=== PATIENT | female | born 1970 | race Caucasian/White ===

== ENCOUNTER 2019-03-16 04:44 | Day surgery (SDC) | payer BC ==
[2019-03-16] MEDS ORDERED: TRANEXAMIC ACID 1,000 MG/10 ML ML IV ONE (04:45)
[2019-03-16] MEDS ORDERED: GLYCOPYRROLATE 0.2 MG/ML ML IV ONE (04:45)
[2019-03-16] MEDS ORDERED: LIDOCAINE 2% MDV (20MG/ML) 20ML VIAL IV ONE (04:45)
[2019-03-16] MEDS ORDERED: PROPOFOL 10 MG/ML VIAL IV ONE (04:45)
[2019-03-16] MEDS ORDERED: MIDAZOLAM HCL 2MG/2ML VIAL IV ONE (04:45)
[2019-03-16] MEDS ORDERED: KETOROLAC 30 MG/ML VIAL IVP ONE (04:45)
[2019-03-16] MEDS ORDERED: VANCOMYCIN HCL 1 GM VIAL IVPB ONE (04:45)
[2019-03-16] MEDS ORDERED: PHENYLEPHRINE HCL 10 MG/ML VIAL IVP ONE (04:45)
[2019-03-16] MEDS ORDERED: RINGERS SOLUTION,LACTATED 500 ML IV ONE (05:35)
[2019-03-16 05:36] LABS: ABO GROUP A; ANTIBODY SCREEN NEGATIVE (NEGATIVE); RH TYPE POSITIVE
[2019-03-16] MEDS: VANCOMYCIN HCL 1,000 MG in 0.9 % SODIUM CHLORIDE 250ML 250 ML IVPB ONE ×2 (05:42→10:44)
[2019-03-16] MEDS ORDERED: METOCLOPRAMIDE 10 MG TABLET PO ONE (06:00)
[2019-03-16] MEDS ORDERED: CELECOXIB 100 MG CAPSULE PO ONE (06:00)
[2019-03-16] MEDS ORDERED: MECLIZINE 25 MG TABLET PO ONE (06:00)
[2019-03-16] MEDS ORDERED: ACETAMINOPHEN 1,000 MG/100 ML BTL IV ONE (06:00)
[2019-03-16] MEDS ORDERED: FAMOTIDINE 20MG TABLET PO ONE (06:00)
[2019-03-16] MEDS ORDERED: CEFAZOLIN 2 Gram 2 GM/50 ML BAG IVPB ONE (06:00)
[2019-03-16] MEDS ORDERED: METOCLOPRAMIDE 10 MG TABLET PO PRN (07:34)
[2019-03-16] MEDS ORDERED: KETOROLAC 30 MG/ML VIAL IVP PRN ×2 (07:34)
[2019-03-16] MEDS ORDERED: ACETAMINOPHEN W/ CODEINE 300MG/30MG TABLET PO PRN ×2 (07:34)
[2019-03-16] MEDS ORDERED: ACETAMINOPHEN 325 MG TAB PO PRN (07:34)
[2019-03-16] MEDS ORDERED: HYDROCODONE/APAP 5/325MG TABLET PO PRN ×2 (07:34)
[2019-03-16] MEDS ORDERED: MAGNESIUM HYDROXIDE 30 ML UDC PO PRN (07:34)
[2019-03-16] MEDS ORDERED: NALOXONE 0.4 MG/1 ML VIAL IVP PRN (07:34)
[2019-03-16] MEDS ORDERED: ACETAMINOPHEN W/ CODEINE 300MG/60MG TABLET PO PRN ×2 (07:34)
[2019-03-16] MEDS ORDERED: TRAMADOL HCL 50 MG TABLET PO PRN ×2 (07:34)
[2019-03-16] MEDS ORDERED: BISACODYL 10 MG SUPP RC PRN (07:34)
[2019-03-16] MEDS ORDERED: AL HYDROX/MAG HYDROX 30ML UD PO PRN (07:34)
[2019-03-16] MEDS ORDERED: HYDROCODONE/APAP 7.5/325MG TABLET PO PRN ×2 (07:34)
[2019-03-16] MEDS ORDERED: DEXTROSE 5 % AND 0.9 % NACL 1,000 ML IV PRN (07:34)
[2019-03-16] MEDS ORDERED: DIPHENHYDRAMINE HCL 25 MG CAPSULE PO PRN (07:34)
[2019-03-16] MEDS ORDERED: PROMETHAZINE HCL 25 MG TABLET PO PRN (07:34)
[2019-03-16] MEDS ORDERED: ONDANSETRON 4 MG ODT TABLET SL PRN (07:34)
[2019-03-16] MEDS ORDERED: BUPIVACAINE 0.5% W/EPI MPF 30 ML VIAL SQ ONE (08:18)
[2019-03-16] MEDS ORDERED: BUPIVACAINE LIPOSOME 266MG/20ML VIAL SQ ONE (08:18)
[2019-03-16] MEDS ORDERED: RINGERS SOLUTION,LACTATED 300 ML IV ONE (09:26)
[2019-03-16] MEDS ORDERED: DOCUSATE SODIUM 100 MG CAPSULE PO SCH (10:00)
[2019-03-16] MEDS ORDERED: VANCOMYCIN HCL 500 MG in 0.9 % SODIUM CHLORIDE 100ML 100 ML IVPB SCH (10:30)
--- NOTE | 2019-03-16 13:22 | Rehab Evaluation ---
Patient Information - Patient Information Diagnosis: L Hip OA Ordered Treatment: PT Evaluate and Treat Status: Initial Evaluation Surgery: Yes (LT) Date of Surgery: 03/16/19 Past Medical/Surgical Hx: PAST MEDICAL/SURGICAL HISTORY Past Surgical History OPEN CHOLECYSTECTOMY PMH - Respiratory Hx Respiratory Disorders No PMH - Cardiovascular Hx Cardiovascular Disorders No Exercise Tolerance Good Hx of Migraines Yes: 1.5 yr ago last one PMH - Neuro Hx Neurological Disorders Yes PMH - GI Hx Gastrointestinal Disorders No PMH - Hx Genitourinary Disorders No Patient No PMH - Endocrine Hx Endocrine Disorders No PMH - Musculoskeletal Hx Musculoskeletal Disorders Yes Hx Arthritis Yes: both hips PMH - Psych Hx Psychiatric Problems No PMH - Hematology/Oncology Hx Hematology/Oncology No Disorders Premorbid Status: Detail (Prior to surgery the patient was independent with all mobility.) Social History: Detail (The patient lives with jodi in a one story house with 3 stairs at the enterance and no handrails. The bathroom is equipped with: a tub /shower combination with a hand held shower and a standard toilet. The patient does have a shower seat and 2 riser seats. No grab bars are present in the bathroom. The patient has a front wheeled walker and a standard cane with a wide base of support.) Precautions: [place], Fall, Other (WBAT on the L LE, THR precautions) - Time With Patient Treatment Procedures: Detail (Initial Evaluation, gait training) Subjective Information - Subjective Information Per Patient (The patient has no complaints of pain. The patient did complain of lightheadedness several times throughout PT session and needed to sit.) Objective Data - Mental Status Patient Orientation: Oriented x3 - Visual Perception Appears within normal limits for therapeutic activities - ROM Not within normal limits (The patient's L hip is within total hip precautions. All other AROM is WNL.) - Strength/Tone Not within normal limits (The patient's L LE was not tested secondary to s/p surgery, however strength was functional ie: patient was able to lift LE out of bed. R LE strength was functional.) - Bed Mobility Independent (The patient was independent with supine to and from sit with use of R LE to lift L.) - Transfers Independent (The patient was independent with sit to and from stand transfer and toilet transfer. Supervision for safety is recommended intitially when discharged due to episode of lightheadedness during initial PT session.) - Balance Balance Sitting: Good Balance Standing: Good - Sensation Intact - Gait Detail (The patient ambulated 20 feet x 1, 13 feet x 1,100 feet x 1 with front wheeled walker with supervison for safety. Initially ambulation distance was limited due to lightheadedness. PT returned later, and patient was able to ambulate 100 feet without lightheadedness.The patient was taken via wheelchair to the steps. The patient stated she felt well enough to ambulate on stairs. The patient ambulated down stairs with neice assisting and folded walker using proper technique. Wheelchair was brought down stairs due to lightheadness. When patient no longer had symptoms, she ambulated up stairs using railing and folded walker. Patient required verbal cues to place whole foot on step.) Therapy Assessment - Therapy Assessment Detail (The patient was independent with bed mobility,transfers and ambulation due to symptoms of lightheadedness and fainting episode during OT session supervision with all mobility is recommended upon discharge. The patient was independent with THR HEP. The patient has met all inpatient goals and is discharged from inpatient PT. The patient is to receive Home Care services who will be present when patient arrives home.) Patient Education - Patient Education Teaching Topic: Exercise/Activity (The patient completed the following THR HEP including: gluteal sets, hamstring sets, quad sets, heel slides, ankle pumps and supine hip abduction.) Response: Return Demonstration Teaching Method: Discussion, Demonstration, Handout Teaching Recipient: Patient Barriers To Learning: None Problem List - Problem List Physical Therapy Problem List: Detail (1) Decreased L LE strength as to be expected s/p surgery 2)Initial lightheadedness with standing and ambulation) Goals - Goals Physical Therapy Goals: The patient has met all inpatient goals and is to receive inpatient PT. Prognosis - Prognosis Good Plan - Plan Physical Therapy Plan: The patient is discharged from inpatient PT and is to receive Home PT.
--- NOTE | 2019-03-16 15:16 | Rehab Evaluation ---
Patient Information - Patient Information Diagnosis: L Hip OA Ordered Treatment: OT Evaluate and Treat Status: Initial Evaluation Surgery: Yes (LTHR) Date of Surgery: 03/16/19 Past Medical/Surgical Hx: PAST MEDICAL/SURGICAL HISTORY Past Surgical History OPEN CHOLECYSTECTOMY PMH - Respiratory Hx Respiratory Disorders No PMH - Cardiovascular Hx Cardiovascular Disorders No Exercise Tolerance Good Hx of Migraines Yes: 1.5 yr ago last one PMH - Neuro Hx Neurological Disorders Yes PMH - GI Hx Gastrointestinal Disorders No PMH - Hx Genitourinary Disorders No Patient No PMH - Endocrine Hx Endocrine Disorders No PMH - Musculoskeletal Hx Musculoskeletal Disorders Yes Hx Arthritis Yes: both hips PMH - Psych Hx Psychiatric Problems No PMH - Hematology/Oncology Hx Hematology/Oncology No Disorders Premorbid Status: Detail (Prior to surgery the patient was independent with all mobility, meal prep, laundry and home mgmt.) Social History: Detail (The patient lives with niece in a one story house with 3 steps at the entrance and no handrails. The bathroom is equipped with: a tub/ shower combination with a hand held shower and a standard toilet. The patient does have a shower seat and 2 riser seats. No grab bars are present in the bathroom. The patient has a front wheeled walker and a standard cane with a wide base of support as well as a severity of illness coordinator, long shoe horn and sock aid. Her niece will be assisting with ADLs/IADLs as needed after discharge.) Precautions: [place], Fall, Other (WBAT on the L LE, THR precautions) - Time With Patient Total Time Spent With Patient (Min): 50 Treatment Procedures: Detail (OT eval low complexity) Subjective Information - Subjective Information Per Patient Objective Data - Pain Pain Present: No (No pain at rest, pt reports increased pain with movement) - Mental Status Patient Orientation: Oriented x3 - Visual Perception Appears within normal limits for therapeutic activities - ROM Within normal limits (Yassine UE AROM WNL) - Strength/Tone Within normal limits (Yassine UE strength WNL) - Coordination Appears within normal limits for therapeutic activities - Bed Mobility Independent (Ind with supine to sit) - Transfers Independent (Ind with sit to stand) - Balance Balance Sitting: Good Balance Standing: Fair - Sensation Intact - ADL's/IADL's Detail (Pt educated and able to demonstrate learning of modified LE dressing techniques using adaptive equipment while maintaining total hip precautions. Pt was able to doff slipper socks and don underwear, pants, socks and tennis shoes with adaptive equipment while maintaining precautions. While pt was standing for nursing to add bandage to hip she reported not feeling good and became unresponsive. She was lowered to the chair and regained responsiveness. She was educated on deep breathing and after applying ice to her forehead and neck she felt better. Reviewed kitchen safety, pt verbalized understanding.) Therapy Assessment - Therapy Assessment Detail (Pt is Ind with modified LE dressing techniques using adaptive equipment while maintaining total hip precautions.) Problem List - Problem List Occupational Therapy Problem List: Detail (No current IP OT problems identified. ) Goals - Goals Occupational Therapy Goals: No current IP OT goals identified. Prognosis - Prognosis Good Plan - Plan Occupational Therapy Plan: No further IP OT recommended. Thank you for this referral.
--- NOTE | 2019-03-17 11:30 | Operative Note ---
DATE OF SERVICE: 03/16/2019. DATE OF SURGERY: 03/16/2019. PREOPERATIVE DIAGNOSIS: End-stage left hip arthrosis. POSTOPERATIVE DIAGNOSIS: End-stage left hip arthrosis. OPERATION: Left total hip arthroplasty. SURGEON: Ted Sheridan MD. ANESTHESIA: Spinal. COMPLICATIONS: None. BLOOD LOSS: 200 mL. OPERATIVE FINDINGS: Severe hypertrophic arthritic [id number] hip. COMPONENTS PLACED: Two gram vancomycin cement, [employer] cemented Synergy stem high offset size 14 with a 32 + 4 mm Oxinium femoral head component, and a 50 degree, 3 hole Reflection acetabular screw component with 2 screw caps, centrally threaded screw cap, and 1 acetabular screw 45 mm and a 35 degree high- crosslinked polyethylene liner. INDICATION: Severe [id number] hypertrophic hip arthrosis. This is a 45-year- old female with severe end-stage bilateral hip arthrosis, almost autofused both hips. She has failed nonoperative treatment. She has very limited range of motion, if any, in either hip at all. She walks with an externally rotated, waddling-type gait, and she was scheduled for hip replacement. I explained all risks and benefits in detail for her diagnosis and procedure, including, but not limited to, infection, nerve injury, vessel injury, persistent pain, stiffness, numbness, tingling in her hip, periprosthetic fracture, need for resection arthroplasty if components become infected or loosen, nerve injury, blood clot, need for anticoagulation to prevent blood clots and risks of these medications, and all of her questions were answered. Details of the course were outlined, and she agreed to proceed. PROCEDURE: The patient was brought to the OR and placed in the left lateral decubitus position. The left hip and lower extremity prepped and draped in the usual sterile fashion. Prepped using ChloraPrep and draped. An intraoperative time out was performed. Next, a posterior approach was marked to the hip with our marking template. Infiltrated 0.5% Marcaine with epi/tranexamic acid/ Exparel mixture. Skin and subcutaneous tissues dissected down. Gluteal fascia split longitudinally. Self retainer was brought in. Then identified the sciatic nerve with care to protect it all times. Released the capsule and short external rotators, and exposed the hip joint. Then the hip joint severely arthritic. Acetabular rim was circumferentially arthritic and close in around the neck. We resected the femoral head and dislocated the femoral head after releasing extensively and resected it. Then we removed osteophytes off some of the rim initially posteriorly for exposure. Then prepared the femoral stem using the box osteotome, and then started reaming in 1 mm increments up to a size 14. Stopped there, broached 12 up to 15 stacey average and the 13 and 14 had good fit, and we stopped there. Attention turned to the acetabulum. Released the capsule anteriorly. Placed retractors anteriorly and inferiorly. Released some of the capsule around the periphery. Next, I reamed in 1 mm increments working up to a size 45 degrees inclination, 20 degree anteversion until we reamed up to a size 49. We stopped there. Planned on using a 50. We medialized as much as possible with reaming, and we capped in the 50 and had a good fit and good reduction. We irrigated copiously, changed gloves, and then impacted down the real 3-hole Reflection acetabular screw shell using the helicopter guide and the same orientation, in 20 degrees anteversion and 45 degrees inclination until we had it flush with the medial wall. We verified our orientation. We then drilled the posterior central superior quadrant screw hole, inserted a 45 mm screw there with good purchase. Next, we removed the rounded rim, large rim osteophytes off the acetabulum to get it back down to the edge of the implanted acetabular shell as best as possible to clean up the hip. Next did a trial range of motion with the trial liner. Best combination range of motion and stability was with the high-offset 32 + 4 mm femoral head component. This allowed for good abductive tension without over-stopping, almost symmetric leg lengths, slightly short on the left. She has severe hip arthrosis on the right, and we plan on hip replacement there, as well, at a later date, and there was stability with extension and external rotation, stability with flexion and internal rotation. Next, we dislocated the hip, changed gloves, mixed cement, irrigated the femoral canal copiously, inserted the cement restrictor, injected the cement. Excess removed with the suction catheter and packed the cement medially, and then inserted the real femoral stem, again in 50 degrees of anteversion until the collar was flush with the medial calcar and held there until the cement hardened. Cleaned and dried the trunnion. Impacted down the real femoral head. Re- reduced the hip and found the range of motion still the same. Irrigated copiously. Then we injected deep to superficial with our 0.5% Marcaine with epi , tranexamic acid, and Exparel mixtures. Closed the gluteal fascia securely using running #2 Stratafix suture, closed the skin securely with 2-0 Vicryl. Sterile dressings applied, provisional, and will be changed to a MARIO dressing prior to discharge. She will be discharged as an outpatient today. Has home therapy with a nurse with [facility] that will be waiting for her at the house , and she will follow up in 2 weeks. DOMINICK
--- NOTE | 2019-03-19 08:57 | RADIOLOGY REPORT ---
EXAM: LEFT HIP, ONE VIEW HISTORY: TOTAL LEFT HIP ARTHROPLASTY. TECHNIQUE: A single AP portable supine view of the left hip is obtained. Comparison: None. FINDINGS: There are changes of recent total left hip arthroplasty with the metallic prosthetic components appearing well seated. No complicating fracture or dislocation is seen. Soft tissue swelling and soft tissue emphysema are scattered throughout the surgical site mildly limiting evaluation. IMPRESSION: STATUS POST RECENT TOTAL LEFT HIP ARTHROPLASTY. NO DEFINITE COMPLICATING FRACTURE NOR DISLOCATION. JOB NUMBER: [id number] [facility]
== END 2019-03-16 17:50 | disposition home health service (06) ==
LOC: SUR 04:44 → MEDSURG 10:16 → EDSTATUS 13:30 → SUR 17:50
PROVIDERS: ATTEND Orthopaedic Surgery
DX: M16.12 Unilateral primary osteoarthritis, left hip (principal); F17.210 Nicotine dependence, cigarettes, uncomplicated
CPT/HCPCS: 86850; 86900; 86901; C1776; J1885; J2370; J7050; J7060; J7120